=== PATIENT | male | born 1960 | race Two or more races ===

== ENCOUNTER 2018-06-08 15:45 | Emergency (ER) | payer OTHER ==
[~2018-06-08] VITALS: Ht 180.3 cm; Wt 132.0 kg
[2018-06-08] MEDS ORDERED: LISI-186 PO (15:55)
[2018-06-08] MEDS ORDERED: IBUP100O28 PO (15:55)
[2018-06-08] MEDS ORDERED: MORPHINE SULFATE 10 MG/ML CPJ IM ONE (16:00)
[2018-06-08] MEDS ORDERED: KETOROLAC 60MG/2ML VIAL IM ONE (20:00)
[2018-06-08 21:50] VITALS: BP 121/75
== END 2018-06-08 21:51 | disposition home or self-care (01) ==
LOC: ER 15:45
DX: S82.301A Unspecified fracture of lower end of right tibia, initial encounter for closed fracture (principal); S82.401A Unspecified fracture of shaft of right fibula, initial encounter for closed fracture; I10 Essential (primary) hypertension; V43.52XA Car driver injured in collision with other type car in traffic accident, initial encounter; Y93.89 Activity, other specified; Y92.410 Unspecified street and highway as the place of occurrence of the external cause
CPT/HCPCS: 29515; 73130; 73610; 96372; 99283; J1885; J2270